=== PATIENT | female | born 1995 | race Caucasian/White ===

== ENCOUNTER 2018-12-30 18:47 | Emergency (ER) | payer BC ==
[2018-12-30 19:11] VITALS: BP 125/92
--- NOTE | 2018-12-30 20:45 | UC ---
Elbow Pain - HPI Summary HPI Summary: 23-year-old female who fell onto her right elbow approximate 5 PM tonight. She denies any other injury. - History of Current Complaint Chief Complaint: UCUpperExtremity Stated Complaint: RT ELBOW INJURY Time Seen by Provider: 12/30/18 18:56 Hx Obtained From: Patient Hx Last Menstrual Period: 1-2 WEEKS AGO ?: No Onset/Duration: Hours - Happened at 5 PM tonight. Severity Initially: Moderate Severity Currently: Mild Pain Intensity: 0 Pain Scale Used: 0-10 Numeric Character: Dull, Aching Aggravating Factor(s): Movement Alleviating Factor(s): Rest Associated Signs And Symptoms: Positive: Negative - Allergies/Home Medications Allergies/Adverse Reactions: Allergies Allergy/AdvReac Type Severity Reaction Status Date / Time No Known Allergies Allergy Verified 12/30/18 19:11 Home Medications: Home Medications BuPROPion XL* [Bupropion XL*] 150 mg PO DAILY 12/30/18 [History Confirmed ] Ibuprofen TAB* [Advil TAB*] 200 mg PO ONCE PRN 12/30/18 [History Confirmed 12/30] Norgestimate-Ethinyl Estradiol [Tri-Sprintec 0.18/0.215/0.25 mg-35 Mcg] 1 tab PO DAILY 12/30/18 [History Confirmed 12/30/18] PMH/Surg Hx/FS Hx/Imm Hx Previously Healthy: Yes - Surgical History Surgical History: None - Family History Known Family History: Positive: Non-Contributory - Social History Alcohol Use: None Substance Use Type: None Smoking Status (MU): Never Smoked Tobacco Review of Systems All Other Systems Reviewed And Are Negative: Yes Motor: Positive: Decreased ROM - After the x-ray the patient attempted to put her arm through range of motion and states she is unable to fully flex or fully extend her elbow. Neurovascular: Positive: Negative Musculoskeletal: Positive: Negative Neurological: Positive: Negative Is Patient Immunocompromised?: No Physical Exam - Summary Physical Exam Summary: Physical examination was done after the negative x-ray reading. Triage Information Reviewed: Yes Appearance: Well-Appearing, No Pain Distress, Well-Nourished Vital Signs: Initial Vital Signs Temp 98.5 F 12/30/18 19:07 Pulse 110 12/30/18 19:07 Resp 16 12/30/18 19:07 BP 125/92 12/30/18 19:07 Pulse Ox 99 12/30/18 19:07 Vital Signs Reviewed: Yes Musculoskeletal: Positive: Strength Intact - The right elbow is minimally tender on palpation just below the olecranon process there is no deformity, erythema, swelling or bruising. Good peripheral pulses neuro sensation capillary refill. She states she cannot fully flex or fully extend her right arm she has some pain with supination and pronation. Neurological: Positive: Alert, Muscle Tone Normal Psychological Exam: Normal Skin Exam: Normal Elbow Pain Course/Dx - Course Course Of Treatment: Right elbow x-ray: Negative as interpreted by myself and Dr. Fajardo. An arm sling is placed and we will call her if there is any change in the x-ray reading in the morning. She is to apply ice and elevate as much as possible and may use an put through range of motion as pain permits. - Differential Dx/Diagnosis Provider Diagnosis: Contusion of elbow, right Discharge - Sign-Out/Discharge Documenting (check all that apply): Patient Departure All imaging exams completed and their final reports reviewed: No - Discharge Plan Condition: Good Disposition: HOME Patient Education Materials: Contusion in Adults (ED) Referrals: Aleks Vinson MD [Medical Doctor] - No Primary Care Phys,NOPCP [Primary Care Provider] - Additional Instructions: Apply ice intermittently over the next 2 days on 20 minutes off 20 minutes, Tylenol may be alternated with Motrin for pain. Wear the arm sling for comfort. Follow-up with the orthopedist if you continue to have pain by Friday. We will call you if there is any change in the x-ray reading tomorrow. - Billing Disposition and Condition Condition: GOOD Disposition: Home - Attestation Statements Provider Attestation: I was available for consult. This patient was seen by the [facility]. The patient was not presented to, seen by, or examined by me. Ede Fajardo MD
--- NOTE | 2018-12-31 07:58 | UC ---
- Progress Note Progress Note: wet read incorrect I personally called patient at 8AM and informed her of her results Advised to f/u with ortho Course/Dx - Diagnoses Provider Diagnoses: Contusion of elbow, right Discharge - Sign-Out/Discharge Documenting (check all that apply): Post-Discharge Follow Up All imaging exams completed and their final reports reviewed: Yes - Discharge Plan Condition: Good Disposition: HOME Patient Education Materials: Contusion in Adults (ED) Referrals: Aleks Vinson MD [Medical Doctor] - No Primary Care Phys,NOPCP [Primary Care Provider] - Additional Instructions: Apply ice intermittently over the next 2 days on 20 minutes off 20 minutes, Tylenol may be alternated with Motrin for pain. Wear the arm sling for comfort. Follow-up with the orthopedist if you continue to have pain by Friday. We will call you if there is any change in the x-ray reading tomorrow. - Billing Disposition and Condition Condition: GOOD Disposition: Home
== END 2018-12-30 20:25 | disposition home or self-care (01) ==
LOC: UCEAST 18:47
DX: S50.01XA Contusion of right elbow, initial encounter (principal); W18.30XA Fall on same level, unspecified, initial encounter; Y92.9 Unspecified place or not applicable
CPT/HCPCS: 99202; G0463